=== PATIENT | male | born 1995 ===

== ENCOUNTER → 2021-05-12 14:28 | Outpatient (CLI) | payer OTHER, SELFPAY | PROVIDERS: PCP Family Medicine; Visit Provider Family Medicine | DX: J02.9 Acute pharyngitis, unspecified (principal) | CPT/HCPCS: 87070 ==

== ENCOUNTER 2021-06-28 23:39 | Emergency (ER) | payer OTHER, SELFPAY ==
--- NOTE | 2021-06-28 23:47 | ED_ITS ---
HPI - Dental/Oral General Chief complaint: Dental/Oral Stated complaint: MOUTH PAIN/INFECTED TOOTH Time Seen by Provider: 06/28/21 23:42 History of Present Illness HPI Narrative: 25-year-old male smoker with history of anxiety and occasional alcohol use presents with a chief complaint of a known dental infection and ongoing fever. He had been seen and evaluated by dentist and was diagnosed with an infection and started on amoxicillin and was given pain medications. After the visit he was told that he would likely benefit from a procedure such as a root canal. He denies any facial swelling, difficulty swallowing, chest pain, cough or other symptoms but has had the occasional fever. He was seen at an emergency dentist on [facility] today and was told that because of his occasional fever he likely had infection in his blood and should present to the emergency department. States he had COVID a few weeks ago, he is unvaccinated against COVID. He states he has had mild chills but denies any teeth chattering or full body shaking such as rigors, he denies any abnormal sweating. He has been taking Tylenol and Motrin to help control his fever, he sought as high as 100.0 today and most recently took 2 Vicodin about 1 hour ago. The dentist today presecribed clindamycin for him Related Data Previous Rx's Medication Instructions Recorded amoxicillin 500 mg capsule 500 mg PO TID #21 cap 05/12/21 Allergies Allergy/AdvReac Type Severity Reaction Status Date / Time No Known Drug Allergies Allergy Unverified 05/12/21 14:28 Review of Systems Review of Systems Narrative: GENERAL: see HPI HEENT: Denies sinus pain, ear pain, sore throat, difficulty swallowing, dizziness. RESPIRATORY: Denies dyspnea, cough, wheezing, hemoptysis, sputum. CARDIOVASCULAR: Denies chest pain, palpitations, orthopnea, edema, GASTROINTESTINAL: Denies nausea, vomiting, abdominal pain, diarrhea, c onstipation, melena. : Denies dysuria, frequency, incontinence, hematuria, urinary retention. MUSCULOSKELETAL: denies weakness, joint pain, or bony pain SKIN: Denies rash, skin lesions, or other NEUROLOGIC: Denies weakness, headache, numbness, change in speech, confusion, seizures, incoordination. PSYCHIATRIC: No concerning psychosocial issues. 12 point review of systems is negative except for those stated above Patient History Medical History Pharyngitis Social History Smoking Status: Current every day smoker Smoking Status: Current every day smoker Exam Narrative Exam Narrative: GENERAL: [25 year old patient appears stated age. Well-developed patient, in minimal distress, anxious HEAD: Atraumatic. Normocephalic. EYES: Pupils equal round and reactive. Extraocular motions intact. No scleral icterus. No injection or drainage. ENT: No facial swelling, intraoral swelling, fluctuance or evidence of abscess Nose without bleeding, purulent drainage. Throat without erythema, tonsillar hypertrophy or exudate. Airway patent. NECK: Trachea midline. Non tender CARDIOVASCULAR: Tachycardic but regular rhythm without murmurs, gallops, or rubs. RESPIRATORY: Clear to auscultation. Breath sounds equal bilaterally. No wheezes, rales, or rhonchi. GASTROINTESTINAL: Abdomen soft, non-tender, nondistended. EXTREMITIES: No edema or joint tenderness. BACK: Nontender without deformity or crepitance. No flank tenderness. NEURO: AOx3. SKIN: No rash or erythema of visible areas Initial Vital Signs Initial Vital Signs: Vital Signs Temperature 97.6 F 06/28/21 23:49 Pulse Rate 114 H 06/28/21 23:49 Respiratory Rate 18 06/28/21 23:49 Blood Pressure 171/107 H 06/28/21 23:49 Pulse Oximetry 99 06/28/21 23:49 Course Orders Ordered: ED Orders 06/28/21 23:56 Basic Metabolic Panel Stat C-Reactive Protein Quant Stat Complete Blood Count AUTO DIFF Stat Sodium Chloride (Normal Saline 0.9%) 1,000 mls @ 1,000 mls/hr IV BOLUS ONE Stop: 06/29/21 00:54 Discontinued Medications Amoxicillin/Clavulanate Potassium (Amoxicillin/Clav 875/125 Mg) 1 tab PO NOW ONE Stop: 06/29/21 00:25 Vital Signs Vital signs: Vital Signs - 8 hr 06/28/21 23:49 Temperature 97.6 F Pulse Rate 114 H Respiratory Rate 18 Blood Pressure 171/107 H Pulse Oximetry 99 MDM - Dental/Oral Lab Data Result diagrams: 06/29/21 00:07 06/29/21 00:07 Labs: Lab Results 06/29/21 Range/Units 00:07 WBC 10.8 (4.5-11.0) X10^3/uL RBC 4.51 (4.5-5.9) X10^6/uL Hgb 13.8 (13.5-17.5) g/dL Hct 40.6 L (41-53) % MCV 90.1 (80-100) fL MCH 30.6 (26-34) PG MCHC 33.9 (30-36) % RDW 14.3 (11.6-14.8) % Plt Count 225 (150-400) X10^3/uL Neut % (Auto) 46.3 L (50-75) % Lymph % (Auto) 37.6 (25-40) % Tucker % (Auto) 15.2 H (3-14) % Eos % (Auto) 0.5 L (2-4) % Baso % (Auto) 0.4 (0-2) % Neut # (Auto) 5000 (7634-9215) /uL Lymph # (Auto) 4100 (5359-5748) /uL Tucker # (Auto) 1600 H (0-900) /uL Eos # (Auto) 100 (0-450) /uL Baso # (Auto) 0 (0-100) /uL MDM Narrative Medical decision making narrative: Patient has reassuring history and physical exam. He has no facial swelling, elevated white blood cell count or suspicion of sepsis. He is tolerating orals and pain is well controlled. Heart rate has improved and monitored over the course of the visit, when not in the room his heart rate drops into the upper 80s and low 90s, it rises during our conversations. Patient is given extensive return precautions and questions answered to his apparent satisfaction Discharge Plan Departure Patient Disposition: Home Clinical Impression: Dental infection Instructions: DI for Dental Pain Activity Restrictions/Additional Instructions: *You have been diagnosed with [dental infection. As we discussed, your history and physical exam as well as labs are very reassuring and there is no sign of facial abscess or cellulitis. My suspicion is quite low that you would have infection in your blood, however we have obtained blood cultures and if there are abnormal findings when we get a result in a few days 1 of our physicians or nurses will call you *What to do: *Please continue to take your regular medications as directed. [ ] New medication prescriptions sent to your pharmacy: [ ] [ ] New medication written as a paper prescription [ ] No new medications given *Please follow up with your dental provider in 2-3 days, call for an appointment. Let them know you were seen in the Emergency Department and that we ask that you be seen in follow up. We will electronically transmit a record of today's note if your PCP is in our system *Return to Emergency Department if you should have any new, worsening or concerning symptoms Prescriptions: No Action amoxicillin 500 mg capsule 500 mg PO TID Qty: 21 0RF Referrals: Bonifacio Garcia, [Primary Care Provider] -
[2021-06-28 23:49] VITALS: BP 171/107; PULSE 114; RESP 18; TEMP 36.4; O2SAT 99; BMI 35.9
[2021-06-29 00:16] LABS: Add Manual Diff / Slide Review NO; Basophils Absolute Auto 0 /uL (0-100); Basophils Percent Auto 0.4 % (0-2); Eosinophils Absolute Auto 100 /uL (0-450); Eosinophils Percent Auto 0.5 % (2-4); Hematocrit 40.6 % (41-53); Hemoglobin 13.8 g/dL (13.5-17.5); Lymphocytes Absolute Auto 4100 /uL (1100-4500); Lymphocytes Percent Auto 37.6 % (25-40); Mean Corpuscular HGB Conc 33.9 % (30-36); Mean Corpuscular Hemoglobin 30.6 PG (26-34); Mean Corpuscular Volume 90.1 fL (80-100); Monocytes Absolute Auto 1600 /uL (0-900); Monocytes Percent Auto 15.2 % (3-14); Neutrophils Absolute Auto 5000 /uL (1500-7000); Neutrophils Percent Auto 46.3 % (50-75); Platelet Count 225 X10^3/uL (150-400); Red Blood Cell Count 4.51 X10^6/uL (4.5-5.9); Red Cell Distribution Width 14.3 % (11.6-14.8); White Blood Cell Count 10.8 X10^3/uL (4.5-11.0)
[2021-06-29 00:26] LABS: BUN Creatinine Ratio 16.7 (6-22); Blood Urea Nitrogen 14 mg/dL (9-20); Calcium 8.9 mg/dL (8.4-10.2); Carbon Dioxide 27 mmol/L (22-32); Chloride 103 mmol/L (98-107); Estimated Glomerular Filt Rate > 60 mL/min (>60); Glucose 134 mg/dL (70-100); HEMOLYSIS < 15 (0-50); Potassium 3.2 mmol/L (3.4-5.1); Sodium 140 mmol/L (137-145)
[2021-06-29 00:43] LABS: C-Reactive Protein Quant 3.6 mg/dL (<1.0)
[2021-06-29] MEDS: IBUPROFEN 400 MG TABLET 800 MG PO (00:45)
[2021-06-29 00:46] VITALS: BP 157/93
== END 2021-06-29 00:46 | disposition home or self-care (01) ==
PROVIDERS: Emergency Provider Emergency Medicine; PCP Family Medicine
DX: K04.7 Periapical abscess without sinus (principal)
CPT/HCPCS: 36415; 80048; 85025; 86140; 87040; 99284